=== PATIENT | male | born 1990 | race Two or more races ===

== ENCOUNTER 2024-03-10 20:05 | Emergency (ER) | payer BC, OTHER ==
[~2024-03-10] VITALS: Ht 170.2 cm; Wt 93.5 kg
[2024-03-10] MEDS: HYDROcodone-ACET 5/325MG TAB PO ONE (22:30)
[2024-03-10] MEDS: CLINDAMYCIN 900MG IV 50 ML IV ONE (23:06)
[2024-03-10 23:11] LABS: Basophils # (auto) 0.1 10 ^3/uL (0-0.2); Basophils % (auto) 0.8 % (0.0-2.0); Eosinophils # (auto) 0.2 10 ^3/uL (0-0.8); Hematocrit 42.5 % (41.0-53.0); Hemoglobin 14.2 g/dL (13.5-17.5); Lymphocytes # (auto) 2.8 10 ^3/uL (0.4-5.4); Lymphocytes % (auto) 26.4 % (10.0-50.0); Mean Corpuscular Hemoglobin 27.7 pg (28.0-32.0); Mean Corpuscular Hgb Conc. 33.5 g/dL (32.0-36.0); Mean Corpuscular Volume 82.6 fL (80.0-100.0); Monocytes # (auto) 0.8 10 ^3/uL (0-1.3); Monocytes % (auto) 7.7 % (0.0-12.0); Neutrophils # (auto) 6.8 10 ^3/uL (1.6-8.6); Neutrophils % (auto) 63.1 % (37.0-80.0); Nucleated Red Blood Cells % 0.1 %; Red Blood Cells 5.14 10^6/uL (4.5-5.90); Red Cell Distribution Width 14.8 % (11.8-14.3); White Blood Cell 10.8 10^3/uL (4.4-10.8)
[2024-03-10 23:23] LABS: Alanine Aminotransferase 36 U/L (7-40); Albumin 4.3 g/dL (3.2-4.8); Alkaline Phosphatase 60 U/L (46-116); Anion Gap 7 (5-15); Aspartate Aminotransferase 18 U/L (13-40); BUN/Creatinine Ratio 7.4 (10.0-20.0); Blood Urea Nitrogen 7 mg/dL (9-23); Calcium 8.9 mg/dL (8.7-10.4); Carbon Dioxide 21 mmol/L (20-30); Chloride 111 mmol/L (98-107); Glucose 129 mg/dL (74-106); Potassium 3.6 mmol/L (3.5-5.1); Sodium 139 mmol/L (136-145)
[2024-03-10 23:24] LABS: Bilirubin, Total 0.3 mg/dL (0.2-1.0)
[2024-03-10] MEDS ORDERED: IOHEXOL 350 MG/ML 100ML IJ ONE (23:49)
[2024-03-10] MEDS: LIDOCAINE 1% HCL (LOCAL ANESTH.) INJ 20ML MDV ID ONE (23:50)
[2024-03-11 01:38] VITALS: BP 138/82; PULSE 93; RESP 17; TEMP 98.2; O2SAT 97
[2024-03-11] MEDS ORDERED: HYDR-4902 PO (01:49)
== END 2024-03-11 02:15 | disposition home or self-care (01) ==
LOC: ER 20:05
DX: L02.31 Cutaneous abscess of buttock (principal); K76.0 Fatty (change of) liver, not elsewhere classified; K57.90 Diverticulosis of intestine, part unspecified, without perforation or abscess without bleeding; I10 Essential (primary) hypertension; E78.5 Hyperlipidemia, unspecified
CPT/HCPCS: 36415; 74177; 80053; 85025; 96365; 99285; J2001; J3490; Q9967